=== PATIENT | male | born 1980 | race Hispanic/Latino ===

== ENCOUNTER 2024-12-13 15:30 | Inpatient (IN) | payer OTHER ==
[~2024-12-13] VITALS: Ht 182.9 cm; Wt 136.1 kg
[2024-12-13 16:01] LABS: BASOPHILS % 0.7 % (0.0-1.0); EOSINOPHILS % 1.9 % (0.0-6.0); LYMPHOCYTES % 34.4 % (18.0-39.1); MONOCYTES % 9.5 % (4.4-11.3); NEUTROPHILS % 53.4 % (38.7-80.0); RED CELL DISTRIBUTION WIDTH 12.1 % (11.7-14.4)
[2024-12-13 16:15] LABS: EST GLOMERULAR FILTRATION RATE 91.0 ML/MIN (>=60)
[2024-12-13 16:19] LABS: LEUKOCYTE ESTERASE ,URINE NEGATIVE (NEGATIVE); PROTEIN,URINE DIPSTICK >=300 (NEGATIVE); URINE UROBILINOGEN 0.2 mg/dL (0.2 - 1)
[2024-12-13] MEDS: SODIUM CHLORIDE 0.9% 1000ML 1,000 ML IV STA (16:24)
[2024-12-13] MEDS ORDERED: IOPAMIDOL 370 MG/ML 100 ML INFUS..BTL INJ ONE (16:31)
[2024-12-13 16:33] LABS: WBC,URINE (MAN) 0-5 /HPF (0-5)
[2024-12-13 16:34] LABS: EPITHELIAL CELLS,URINE FEW /LPF
[2024-12-13] MEDS ORDERED: ONDANSETRON HCL INJ 2MG/ML 2ML 2 MG/ML VIAL IV PRN (20:15)
[2024-12-13 21:30] VITALS: PULSE 89; RESP 17; TEMP 98.7
[2024-12-13 21:44] VITALS: BP 129/88; PULSE 93; RESP 20; TEMP 97.6; O2SAT 97
[2024-12-13] MEDS ORDERED: DAPAGLIFLOZIN5 MG (22:21)
[2024-12-13] MEDS ORDERED: LISINOPRIL2.5 MG PO (22:21)
[2024-12-13] MEDS ORDERED: LIPITOR20 MG PO (22:21)
[2024-12-13] MEDS ORDERED: MONTELUKAST SOD10 MG PO (22:21)
[2024-12-13] MEDS ORDERED: ZETIA10 MG PO (22:21)
[2024-12-13] MEDS ORDERED: METFORMIN HCL500 MG PO (22:21)
[2024-12-13] MEDS ORDERED: SEMAGLUTID1 MG/0.2 M SQ (23:06)
[2024-12-14] VITALS (8 sets, daily range): BP systolic 104–144; BP diastolic 65–95; PULSE 60–72; RESP 18–20; TEMP 97.4–98.2; O2SAT 99–100
[2024-12-14] MEDS: SODIUM CHLORIDE 0.9% 1000ML 1,000 ML IV SCH (00:15)
[2024-12-14 05:53] LABS: BASOPHILS % 0.9 % (0.0-1.0); EOSINOPHILS % 3.8 % (0.0-6.0); LYMPHOCYTES % 35.0 % (18.0-39.1); MONOCYTES % 11.3 % (4.4-11.3); NEUTROPHILS % 48.9 % (38.7-80.0); RED CELL DISTRIBUTION WIDTH 12.0 % (11.7-14.4)
[2024-12-14 06:09] LABS: INR 1.06
[2024-12-14 06:28] LABS: EST GLOMERULAR FILTRATION RATE 112.0 ML/MIN (>=60)
[2024-12-14] MEDS: Morphine 4mg INJECTION 4 MG/ML INJ IV PRN (16:40)
[2024-12-14] MEDS ORDERED: ACETAMINOPHEN 325 MG TAB PO PRN (19:45)
[2024-12-14] MEDS ORDERED: BISACODYL 10 MG SUPP PR PRN (19:45)
[2024-12-14] MEDS ORDERED: HYDRALAZINE HCL 20 MG/ML VIAL IV PRN (19:45)
[2024-12-14] MEDS ORDERED: LACTULOSE SYRUP 20 GM/30 ML UDC PO PRN (19:45)
[2024-12-14] MEDS: MONTELUKAST SODIUM 10 MG TAB PO SCH (20:47)
[2024-12-14] MEDS: DOCUSATE SODIUM 100 MG CAP PO SCH (20:48)
[2024-12-14] MEDS: HYDROCODONE/APAP 7.5MG-325MG 1 EA TAB PO PRN (20:48)
[2024-12-15 06:08] LABS: BASOPHILS % 1.2 % (0.0-1.0); EOSINOPHILS % 5.0 % (0.0-6.0); LYMPHOCYTES % 41.9 % (18.0-39.1); MONOCYTES % 8.3 % (4.4-11.3); NEUTROPHILS % 43.3 % (38.7-80.0); RED CELL DISTRIBUTION WIDTH 11.9 % (11.7-14.4)
[2024-12-15 06:17] VITALS: PULSE 74; RESP 21; O2SAT 97
[2024-12-15 06:46] LABS: CHOL/HDL RATIO 3.9 (3.9-4.7); EST GLOMERULAR FILTRATION RATE 114.0 ML/MIN (>=60); LDL CHOLESTEROL 60.0 MG/DL (60-130); PHOSPHORUS 3.3 MG/DL (2.3-4.7)
[2024-12-15 08:00] VITALS: BP 131/97; PULSE 66; RESP 18; TEMP 97.8; O2SAT 98
[2024-12-15] MEDS: POLYETHYLENE GLYCOL 3350 17 GM PACK PO SCH (08:17)
[2024-12-15] MEDS: ATORVASTATIN 20 MG TAB PO SCH (08:18)
[2024-12-15] MEDS: SENNA-S TABLET PO SCH (08:18)
[2024-12-15] MEDS: EZETIMIBE 10 MG TAB PO SCH (08:18)
[2024-12-15] MEDS: FAMOTIDINE 20 MG TAB PO SCH (08:18)
[2024-12-15 09:00] VITALS: BP 104/65; PULSE 74; RESP 21; TEMP 97.9; O2SAT 97
[2024-12-15 12:00] VITALS: BP 123/79; PULSE 60; RESP 18; TEMP 98; O2SAT 99
== END 2024-12-15 14:00 | disposition home or self-care (01) | DRG 392 ==
LOC: ER 15:56 → ERHOLD 20:03 → MED/SURG2 21:57
PROVIDERS: ADMIT Internal Medicine; ATTEND Internal Medicine
DX: K57.20 Diverticulitis of large intestine with perforation and abscess without bleeding (principal); N39.0 Urinary tract infection, site not specified; E66.01 Morbid (severe) obesity due to excess calories; Z68.41 Body mass index [BMI] 40.0-44.9, adult; B96.20 Unspecified Escherichia coli [E. coli] as the cause of diseases classified elsewhere; E11.9 Type 2 diabetes mellitus without complications; E78.00 Pure hypercholesterolemia, unspecified; R33.9 Retention of urine, unspecified; E86.0 Dehydration; K59.00 Constipation, unspecified; M54.9 Dorsalgia, unspecified; R31.29 Other microscopic hematuria; Z79.84 Long term (current) use of oral hypoglycemic drugs; Z79.85 Long-term (current) use of injectable non-insulin antidiabetic drugs
CPT/HCPCS: 36415; 74177; 80053; 80061; 81001; 82550; 82948; 83036; 83735; 84100; 84439; 84443; 84484; 85025; 85610; 85730; 87086; 87186; 94799; 99284; J2270; J2543; J7030; Q9967